=== PATIENT | female | born 1995 | race Caucasian/White ===

== ENCOUNTER 2019-05-20 17:49 | Emergency (ER) | payer MEDICAID ==
[~2019-05-20] VITALS: Ht 167.6 cm; Wt 60.0 kg
[2019-05-20] MEDS ORDERED: LORAZEPAM 0.5MG TABLET PO ONE (18:45)
[2019-05-20 20:38] VITALS: BP 122/78
== END 2019-05-20 20:41 | disposition home or self-care (01) ==
LOC: ER 17:49
DX: F41.0 Panic disorder [episodic paroxysmal anxiety] (principal); F43.0 Acute stress reaction
CPT/HCPCS: 93005; 99283

== ENCOUNTER 2019-06-02 21:54 | Emergency (ER) | payer BC, MEDICAID ==
[~2019-06-02] VITALS: Ht 165.1 cm; Wt 63.0 kg
[2019-06-03 00:20] VITALS: BP 116/71
== END 2019-06-03 00:40 | disposition home or self-care (01) ==
LOC: ER 22:02
DX: J02.9 Acute pharyngitis, unspecified (principal)
CPT/HCPCS: 99281

== ENCOUNTER 2019-06-05 21:06 | Emergency (ER) | payer MEDICAID ==
[~2019-06-05] VITALS: Ht 165.1 cm; Wt 63.0 kg
[2019-06-06 01:51] VITALS: BP 101/70
== END 2019-06-06 01:52 | disposition home or self-care (01) ==
LOC: ER 21:06
DX: R13.10 Dysphagia, unspecified (principal); F41.9 Anxiety disorder, unspecified; Z90.49 Acquired absence of other specified parts of digestive tract
CPT/HCPCS: 99283

== ENCOUNTER 2020-03-28 15:07 | Emergency (ER) | payer MEDICAID ==
[~2020-03-28] VITALS: Ht 165.1 cm; Wt 61.0 kg
[2020-03-28] MEDS ORDERED: SODIUM CHLORIDE 0.9% 1,000 ML IV ONE ×2 (16:52→19:30)
[2020-03-28] MEDS ORDERED: ONDANSETRON HCL 4MG/2ML INJ IV STA (16:52)
[2020-03-28 17:19] LABS: HEMATOCRIT. 37.6 % (36.0-48.0); HEMOGLOBIN. 12.3 g/dL (12.0-16.0); MEAN CORPUSCULAR HEMOGLOBIN 26.9 pg (28.0-32.0); MEAN CORPUSCULAR VOLUME 82.5 fL (81.0-99.0); MEAN PLATELET VOLUME 8.8 fl (7.4-10.4); PLATELET 266 x1000/uL (130-400); RED BLOOD CELL COUNT 4.56 mill/uL (4.2-5.4); RED CELL DISTRIBUTION WIDTH 14.8 % (11.6-14.6)
[2020-03-28 17:21] LABS: CLARITY URINE TURBID (CLEAR); COLOR URINE YELLOW (YELLOW); KETONES URINE 3+ (NEGATIVE); LEUKOCYTE ESTERASE URINE TRACE (NEGATIVE); NITRITE URINE NEGATIVE (NEGATIVE); OCCULT BLOOD URINE 2+ (NEGATIVE); PH URINE 5.5 (4.5-8.0); PROTEIN URINE TRACE (NEGATIVE); SPECIFIC GRAVITY URINE 1.025 (1.005-1.030)
[2020-03-28 17:24] LABS: CHLORIDE 106 mEq/L (98-107)
[2020-03-28 17:27] LABS: ETHANOL BLOOD < 10 mg/dL
[2020-03-28 17:29] LABS: HCG SCREEN NEGATIVE
[2020-03-28 17:36] LABS: *AMPHETAMINES SCREEN URINE NEGATIVE (NEGATIVE); *BARBITURATES SCREEN URINE NEGATIVE (NEGATIVE); PLATELET ESTIMATE NORMAL
[2020-03-28 17:37] LABS: *BENZODIAZEPINES SCREEN URINE NEGATIVE (NEGATIVE); *COCAINE SCREEN URINE NEGATIVE (NEGATIVE); CANNABINOID URINE SCREEN NEGATIVE (NEGATIVE); METHADONE URINE SCREEN NEGATIVE (NEGATIVE); OPIATES URINE SCREEN NEGATIVE (NEGATIVE); PHENCYCLIDINE URINE SCREEN NEGATIVE (NEGATIVE)
[2020-03-28] MEDS ORDERED: ONDANSETRON 4MG ODT PO ONE (18:30)
[2020-03-28 20:45] VITALS: BP 116/76
[2020-03-28] MEDS ORDERED: METOCLOPRAMIDE HCL 5MG TABLET PO ONE (21:30)
== END 2020-03-28 21:00 | disposition home or self-care (01) ==
LOC: ER 15:07
DX: E86.0 Dehydration (principal); R00.0 Tachycardia, unspecified; Z90.49 Acquired absence of other specified parts of digestive tract
CPT/HCPCS: 36415; 80053; 80305; 80320; 81003; 81025; 84484; 84703; 85025; 93005; 96361; 96374; 99284; J2405; J7030; J8597; Q0162; G0480